=== PATIENT | male | born 1930 | race Two or more races ===

== ENCOUNTER 2016-04-24 13:22 | Emergency (ER) | payer OTHER ==
[2016-04-24 13:34] VITALS: BP 142/78; PULSE 85; TEMP 98.1; BMI 27.4
[2016-04-24] MEDS ORDERED: ALBUTEROL SO4 0.083% IH SOL 2.5 MG/3 ML VIAL.NEB. NEB ONE ×2 (14:04→15:21)
--- NOTE | 2016-04-24 14:12 | PDOC ---
History of Present Illness - General History Source: Patient, Family (, daughter) Exam Limitations: No Limitations - History of Present Illness Initial Comments: 04/24/16 14:52 The patient is an 85 year old male, with a significant past medical history of HTN, who presents to the emergency department with subjective fevers, a dry cough and sore throat for the past 2 days. His symptoms began approximately 2 days ago and started with him sneezing frequently. Since then, he had felt feverish and has began coughing. His and daughter are with him in the ED. His daughter decided to bring him to the ED because he is traveling to the [facility] in a couple of days so she wanted him to be evaluated before he leaves the country. The patient denies chills, SOB, chest pain, nausea or vomiting. The patient denies any sick contacts or recent travel. Allergies: None reported. Past Surgical History: Colon CA (Resection) Social History: Non smoker. Denies alcohol or drug use. <Elham Hall - Last Filed: 04/24/16 16:51> - General History Source: Patient, Family Exam Limitations: No Limitations <Adama Buitrago - Last Filed: 04/24/16 17:16> - General Chief Complaint: Cold Symptoms Stated Complaint: CHEST PAIN, HEADACHES Time Seen by Provider: 04/24/16 13:42 Past History <Elham Hall - Last Filed: 04/24/16 16:51> - Past Medical History HTN: Yes - Surgical History Abdominal Surgery: Yes (COLON CA RESCTION) - Psycho/Social/Smoking Cessation Hx Anxiety: No Suicidal Ideation: No Smoking History: Never smoked Have you smoked in the past 12 months: No Information on smoking cessation initiated: No Hx Alcohol Use: No Drug/Substance Use Hx: No Substance Use Type: None <Adama Buitrago - Last Filed: 04/24/16 17:16> - Past Medical History Allergies/Adverse Reactions: Allergies Allergy/AdvReac Type Severity Reaction Status Date / Time No Known Allergies Allergy Verified 04/24/16 13:29 Home Medications: Ambulatory Orders Acetaminophen [Tylenol] 650 mg PO Q4H PRN #20 tablet 04/24/16 Albuterol Sulfate Inhaler - [Ventolin HFA Inhaler -] 1 - 2 inh PO Q4H PRN #1 inhaler 04/24/16 Azithromycin 250 mg PO DAILY #4 tablet 04/24/16 Oseltamivir Phosphate [Tamiflu] 75 mg PO BID #10 capsule 04/24/16 Review of Systems - Review of Systems Able to Perform ROS?: Yes Comments:: 04/24/16 14:52 GENERAL/CONSTITUTIONAL: +Fevers. No chills. No weakness. HEAD, EYES, EARS, NOSE AND THROAT: +Sore throat. No change in vision. No ear pain or discharge. CARDIOVASCULAR: No chest pain or shortness of breath. RESPIRATORY: +Cough. No wheezing or hemoptysis. GASTROINTESTINAL: No nausea, vomiting, diarrhea or constipation. GENITOURINARY: No dysuria, frequency, or change in urination. MUSCULOSKELETAL: No joint or muscle swelling or pain. No neck or back pain. SKIN: No rash. NEUROLOGIC: No headache, vertigo, loss of consciousness, or change in strength/ sensation. ENDOCRINE: No increased thirst. No abnormal weight change. HEMATOLOGIC/LYMPHATIC: No anemia, easy bleeding, or history of blood clots. ALLERGIC/IMMUNOLOGIC: No hives or skin allergy. <Elham Hall - Last Filed: 04/24/16 16:51> *Physical Exam - Vital Signs Last Vital Signs Temp Pulse Resp BP Pulse Ox 98.1 F 85 18 142/78 97 04/24/16 13:30 04/24/16 13:30 04/24/16 13:30 04/24/16 13:30 04/24/16 13:30 - Physical Exam Comments: 04/24/16 14:37 GENERAL: Awake, alert, and fully oriented, in no acute distress. HEAD: No signs of trauma. EYES: PERRLA, EOMI, sclera anicteric, conjunctiva clear. ENT: Auricles normal inspection, hearing grossly normal, nares patent, oropharynx clear without exudates. Moist mucosa. NECK: Normal ROM, supple, no lymphadenopathy, JVD, or masses. LUNGS: Breath sounds equal, clear to auscultation bilaterally but wheezing when coughing. No crackles. HEART: Regular rate and rhythm, normal S1 and S2, no murmurs, rubs or gallops. ABDOMEN: Soft, nontender, normoactive bowel sounds. No guarding, no rebound. No masses. EXTREMITIES: Normal range of motion, no edema. No clubbing or cyanosis. No cords, erythema, or tenderness. NEUROLOGICAL: Cranial nerves II through XII grossly intact. Normal speech, normal gait. SKIN: Warm, dry, normal turgor, no rashes or lesions noted. <Elham Hall - Last Filed: 04/24/16 16:51> - Vital Signs Last Vital Signs Temp Pulse Resp BP Pulse Ox 98.1 F 85 18 142/78 97 04/24/16 13:30 04/24/16 13:30 04/24/16 13:30 04/24/16 13:30 04/24/16 13:30 <Adama Buitrago - Last Filed: 04/24/16 17:16> Heart Score/ECG Review #1 ECG reviewed & interpreted by me at: 13:35 04/24/16 14:11 NSR 81, Q wave V1, V2, LVH, RSR' pattern V1-V2, no std/jane, QTC 436 msec <Adama Buitrago - Last Filed: 04/24/16 17:16> ED Treatment Course - LABORATORY CBC & Chemistry Diagram: 04/24/16 14:30 04/24/16 14:30 <Elham Hall - Last Filed: 04/24/16 16:51> - LABORATORY CBC & Chemistry Diagram: 04/24/16 14:30 04/24/16 14:30 - RADIOLOGY Radiology Studies Ordered: Category Date Time Status CHEST PA & LAT [RAD] Stat Radiology 04/24/16 14:04 Ordered <Adama Buitrago - Last Filed: 04/24/16 17:16> Medical Decision Making - Medical Decision Making 04/24/16 16:51 EXAM: RAD/CHEST PA & LAT Reviewed By: Dr. Avery Batista IMPRESSION: Poor inspiratory effort with probable hypoventilatory changes at both lung bases however minimal infiltrate cannot be completely excluded. Follow -up may be obtained as clinically indicated. <Elham Hall - Last Filed: 04/24/16 16:51> - Medical Decision Making 04/24/16 14:12 A portion of this note was documented by scribe services under my direction. I have reviewed the details of the note, within reason, and agree with the documentation with the following case summary and management plan written by me. Patient treated in the ED. Nursing notes are reviewed and incorporated into the medical decision-making. Vital signs reviewed. Peripheral IV access obtained by the nurse, laboratory studies are drawn and sent, reviewed and interpreted by myself. Vital Signs Temp Pulse Resp BP Pulse Ox 98.1 F 85 18 142/78 97 04/24/16 13:30 04/24/16 13:30 04/24/16 13:30 04/24/16 13:30 04/24/16 13:30 85-year-old male with past medical history of hypertension presents to the emergency department for cold-like symptoms for 2 days. The patient has been having a dry cough with throat aches and tactile fevers. Denies sick contacts or recent travels. Denies chest pain or shortness of breath. I suspect that the patient is a viral syndrome. However, we'll rule out for influenza. We'll obtain an orophaynx swab. We'll obtain a chest x-ray and labs. If workup is negative, I suspect that the patient is a viral syndrome and will have supportive care and follow-up with PMD. He is overall well-appearing. 04/24/16 16:54 CBC, BMP 04/24/16 14:30 04/24/16 14:30 CMP Sodium 135 mmol/L (136-145) L 04/24/16 14:30 Potassium 4.0 mmol/L (3.5-5.1) 04/24/16 14:30 Chloride 97 mmol/L (98-107) L 04/24/16 14:30 Carbon Dioxide 28 mmol/L (21-32) 04/24/16 14:30 Anion Gap 10 (8-16) 04/24/16 14:30 BUN 16 mg/dL (7-18) 04/24/16 14:30 Creatinine 1.3 mg/dL (0.7-1.3) 04/24/16 14:30 Creat Clearance w eGFR 52.34 (>60) 04/24/16 14:30 Random Glucose 100 mg/dL (74-106) 04/24/16 14:30 Calcium 9.0 mg/dL (8.5-10.1) 04/24/16 14:30 Total Bilirubin 1.6 mg/dL (0.2-1.0) H 04/24/16 14:30 AST 49 U/L (15-37) H 04/24/16 14:30 ALT 33 U/L (12-78) 04/24/16 14:30 Alkaline Phosphatase 88 U/L (45-117) 04/24/16 14:30 Total Protein 8.0 g/dl (6.4-8.2) 04/24/16 14:30 Albumin 4.2 g/dl (3.4-5.0) 04/24/16 14:30 Chest xray reviewed. Poor inspiratory effort with probable hypoventilatory changes at both lung bases however minimal infiltrate cannot be excluded. Follow -up may be obtained as clinically indicated. 04/24/16 17:08 I explained to the patient that there was an incidental thrombocytopenia. The patient typically follows up with your [facility] the [facility]. I given a copy the results to have the patient bring to his physician' s office. The daughters at the bedside and is aware. The chest x-ray results demonstrates likely no findings but given minimal infiltrates, we'll initiate azithromycin. My suspicion is that the patient likely does not have pneumonia. However, given with the cough and elderly age, we'll treat as bronchitis. Patient otherwise is breathing comfortably and unlabored. Return precautions were given including worsening cough. As of note, pt swabbed positive for influenza A. Will start tamiflu. I discussed the physical exam findings, ancillary test results and final diagnoses with the patient. I answered all of the patient's questions. The patient was satisfied with the care received and felt comfortable with the discharge plan and treatment plan. The patient will call their primary care physician within 24 hours to arrange follow-up and will return to the Emergency Department with any new, persistant or worsening symptoms. <Adama Buitrago - Last Filed: 04/24/16 17:16> *DC/Admit/Observation/Transfer - Attestations Scribe Attestion: 04/24/16 14:29 Documentation prepared by Elham Hall, acting as medical radiation tech for Adama Biutrago MD. <Elham Hall - Last Filed: 04/24/16 16:51> - Discharge Dispostion Admit: No <Adama Buitrago - Last Filed: 04/24/16 17:16> Diagnosis at time of Disposition: Bronchitis, Thrombocytopenia, Influenza - Discharge Dispostion Disposition: HOME Condition at time of disposition: Stable - Prescriptions Prescriptions: Azithromycin 250 mg PO DAILY #4 tablet Oseltamivir Phosphate [Tamiflu] 75 mg PO BID #10 capsule Acetaminophen [Tylenol] 650 mg PO Q4H PRN #20 tablet PRN Reason: Pain/Fever Albuterol Sulfate Inhaler - [Ventolin HFA Inhaler -] 1 - 2 inh PO Q4H PRN #1 inhaler PRN Reason: Wheezing/Coughing - Patient Instructions Printed Discharge Instructions: DI for Acute Bronchitis, DI for Influenza -- Adult Additional Instructions: You swabbed positive for influenza A. Please take the tamiflu for the next 5 days. Also noted is your chest xray, which may possibly show an infection. Please take the azithromycin (antibiotic) as prescribed. Take 2 puffs of albuterol every 4 hours as needed for cough/wheezing. Take 650 mg tylenol every 4 hours as needed for fever/pain. It may take several days before you get better. Incidentally, your platelets were in the mid 60s. Please bring a copy of the results to your doctor and follow up. Your workup is considered incomplete until evaluated by your primary care physician. Print Language: MOLDOVAN
[2016-04-24 15:04] LABS: MCH 30.6 pg (25.7-33.7); MCHC 33.6 g/dl (32.0-35.9); MEAN CELL VOLUME 91.2 fl (80-96); PLATELET COUNT 64 K/MM3 (134-434); RDW 14.6 % (11.9-15.9); WHITE BLOOD COUNT 12.1 K/mm3 (4.0-10.0)
[2016-04-24 15:30] LABS: ALBUMIN 4.2 g/dl (3.4-5.0); BILIRUBIN,TOTAL 1.6 mg/dL (0.2-1.0); CREATININE 1.3 mg/dL (0.7-1.3)
[2016-04-24 16:25] LABS: PLATELET ESTIMATE DECREASED (NORMAL)
[2016-04-24 16:26] LABS: PLATELET COMMENT2 NO CLUMPING NOTED
[2016-04-24] MEDS ORDERED: AZITHROMYCIN 250 MG TABLET (FP) PO ONE (17:07)
[2016-04-24] MEDS ORDERED: ACETAMINOPHEN 325 MG TABLET (FP) PO ONE (17:07)
[2016-04-24] MEDS ORDERED: OSELTAMIVIR PHOSPHATE 75 MG CAPSULE PO ONE (17:12)
[2016-04-24] MEDS ORDERED: OSELTAMIVIR PHOSPHATE 75 MG CAPSULE ONE (17:34)
[2016-04-24] MEDS ORDERED: AZITHROMYCIN 250 MG TABLET (FP) ONE (17:34)
[2016-04-24] MEDS ORDERED: ACETAMINOPHEN 325 MG TABLET (FP) ONE (17:34)
--- NOTE | 2016-05-01 12:59 | EKG ---
Test Reason : Blood Pressure : / mmHG Vent. Rate : 081 BPM Atrial Rate : 081 BPM P-R Int : 146 ms QRS Dur : 120 ms QT Int : 376 ms P-R-T Axes : 081 -26 115 degrees QTc Int : 436 ms NORMAL SINUS RHYTHM POSSIBLE LEFT ATRIAL ENLARGEMENT RSR' OR QR PATTERN IN V1 SUGGESTS RIGHT VENTRICULAR CONDUCTION DELAY LEFT VENTRICULAR HYPERTROPHY WITH QRS WIDENING AND REPOLARIZATION ABNORMALITY CANNOT RULE OUT SEPTAL INFARCT , AGE UNDETERMINED ABNORMAL ECG NO PREVIOUS ECGS AVAILABLE Confirmed by LOPEZ MIRANDA MD ([id number]) on 05/01/2016 12:58:57 PM Referred By: Confirmed By:LOPEZ MIRANDA MD
== END 2016-04-24 17:41 | disposition home or self-care (01) ==
LOC: JER 13:22
PROC: 3E0F7GC Introduction of Other Therapeutic Substance into Respiratory Tract, Via Natural or Artificial Opening (ICD-10-PCS; principal; 2016-04-24)
DX: J09.X2 Influenza due to identified novel influenza A virus with other respiratory manifestations (principal); D69.6 Thrombocytopenia, unspecified; I10 Essential (primary) hypertension
CPT/HCPCS: 36415; 71020-TC; 80053; 85025; 87070; 87430; 87804; 93005; 93010; 94640; 99282-25